=== PATIENT | male | born 1990 | race Caucasian/White ===

== ENCOUNTER 2024-06-05 09:21 | Emergency (ER) | payer BC, SELFPAY ==
[2024-06-05 09:34] VITALS: BP 160/96
--- NOTE | 2024-06-05 09:35 | ED.GENMED ---
ED Provider Triage
<Ciro Mills PA-C - Last Filed: 06/05/24 09:36>
-
Patient seen by provider in Triage?: Seen in Triage
Attestation: A medical screening examination has been initiated by a qualified medical provider. Based on the assessment performed at this time, it has been determined that an emergent medical condition may exist and the patient has been informed
that further medical evaluation and possible additional diagnostic testing may be needed.
HPI: 33-year-old male presents to the emergency department for evaluation of nausea vomiting and diarrhea, notes that his Mounjaro dose increased recently. Moderate abdominal discomfort as well. No fever
GENERAL: Alert , in no apparent distress
EYE: No visual abnormalities.
NECK: Trachea midline
ENT: No visible abnormalities.
LUNGS: No acute respiratory distress
NEUROLOGICAL: Alert and oriented
SKIN: Skin intact. No visible changes.
MUSCULOSKELETAL: Moving extremities normally
PSYCH: Normal and appropriate interaction.
This is a medical evaluation conducted in person to initiate diagnostic evaluation and provide initial therapeutics. Please see further documentation by the treating clinician.
History of Present Illness
<Ciro Mills PA-C - Last Filed: 06/05/24 09:36>
General
Chief Complaint: Abdominal Pain
Time Seen by Provider: 06/05/24 11:10
<Kal Nunez Jr., PA-C - Last Filed: 06/05/24 14:47>
General
Source: patient
Exam Limitations: none
Nursing documentation reviewed up to this point in time: agreed with
History of Present Illness
History of Present Illness:
33-year-old male with past medical history of hypertension and diabetes presenting to the emergency department today with concerns of nausea few episodes of vomiting and multiple episodes of diarrhea as well as crampy diffuse abdominal pain starting
last night. Has recently had increased dose of Mounjaro at home. Denies any chest pain shortness of breath no changes in urination.
Past History
<Ciro Mills PA-C - Last Filed: 06/05/24 09:36>
Past History
ED Past Medical History: None
ED Past Surgical History: None
Review of Systems
<Kal Nunez Jr., PA-C - Last Filed: 06/05/24 14:47>
Review of Systems
Allergies reviewed?: Yes
All Other Systems: ROS reviewed and negative except as documented in HPI and ROS
Phy Exam
<Kal Nunez Jr., PA-C - Last Filed: 06/05/24 14:47>
Physical Exam
Physical Exam:
GENERAL: Alert , in no apparent distress
EYE: pupils equal and reactive
NECK: Supple, no significant adenopathy.
ENT: o/p clr, mmm.
CARDIAC: Regular rate and rhythm .
LUNGS: Clear breath sounds bilaterally, no acute respiratory distress, no wheezes/rales/rhonchi
ABDOMEN: Vague discomfort throughout the abdomen maximal to the right side remainder of abdomen soft, without focal tenderness, no r/g, no cvat
NEUROLOGICAL: Alert and oriented, no focal neuro deficits
SKIN: Warm and dry, skin intact.
MUSCULOSKELETAL: No edema, well perfused.
PSYCH: Normal and appropriate interaction.
Course
<Ciro Mills PA-C - Last Filed: 06/05/24 09:36>
Orders/Labs/Results
Orders:
Orders
06/05/24 11:33
0.9% Sodium Chloride 1000 ml [Nss] 1,000 ml IV BOLUS
Ondansetron Injectable [Zofran] 4 mg IV NOW STA
06/05/24 12:56
Complete Blood Count/With Diff Urgent
Comprehensive Metabolic Panel Urgent
Lipase Urgent
Urinalysis Reflex To Culture Urgent
Date Specimen was Collected: 06/05/24
Time Specimen was Collected: 12:48
Urine Microscopic Reflex Cult Urgent
Abnormal Lab Results
06/05/24
12:56
WBC 18.9 H 10^3/uL
(4.8-10.8)
Abs Immat Gran (auto) 0.1 H 10^3/uL
(0-0.05)
Absolute Neuts (auto) 16.5 H 10^3/uL
(1.4-6.5)
Absolute Lymphs (auto) 0.9 L 10^3/uL
(1.2-3.4)
Absolute Monos (auto) 1.0 H 10^3/uL
(0.1-0.6)
Neutrophils % 87.5 H %
(42.2-75.2)
Lymphocytes % 4.9 L %
(20.5-51.1)
Glucose 167 H mg/dl
(70-99)
Urine Bacteria (Reflex) Few A
(Negative)
Urine Albumin (Reflex) 2+ A
(Neg - Trace)
06/05/24 12:56
06/05/24 12:56
Vital Signs
Initial and Last Documented VS:
Initial Vital Signs
Temp Pulse Resp BP Pulse Ox
98.0 F 125 18 160/96 99
06/05/24 09:34 06/05/24 09:34 06/05/24 09:34 06/05/24 09:34 06/05/24 09:34
Last Documented Vital Signs
Temp Pulse Resp BP Pulse Ox
98.0 F 105 20 130/88 98
06/05/24 09:34 06/05/24 13:05 06/05/24 13:05 06/05/24 13:05 06/05/24 13:05
<Kal Nunez Jr., PA-C - Last Filed: 06/05/24 14:47>
Orders/Labs/Results
Orders:
Orders
06/05/24 11:33
0.9% Sodium Chloride 1000 ml [Nss] 1,000 ml IV BOLUS
Ondansetron Injectable [Zofran] 4 mg IV NOW STA
06/05/24 12:56
Complete Blood Count/With Diff Urgent
Comprehensive Metabolic Panel Urgent
Lipase Urgent
Urinalysis Reflex To Culture Urgent
Date Specimen was Collected: 06/05/24
Time Specimen was Collected: 12:48
Urine Microscopic Reflex Cult Urgent
Abnormal Lab Results
06/05/24
12:56
WBC 18.9 H 10^3/uL
(4.8-10.8)
Abs Immat Gran (auto) 0.1 H 10^3/uL
(0-0.05)
Absolute Neuts (auto) 16.5 H 10^3/uL
(1.4-6.5)
Absolute Lymphs (auto) 0.9 L 10^3/uL
(1.2-3.4)
Absolute Monos (auto) 1.0 H 10^3/uL
(0.1-0.6)
Neutrophils % 87.5 H %
(42.2-75.2)
Lymphocytes % 4.9 L %
(20.5-51.1)
Glucose 167 H mg/dl
(70-99)
Urine Bacteria (Reflex) Few A
(Negative)
Urine Albumin (Reflex) 2+ A
(Neg - Trace)
06/05/24 12:56
06/05/24 12:56
Vital Signs
Initial and Last Documented VS:
Initial Vital Signs
Temp Pulse Resp BP Pulse Ox
98.0 F 125 18 160/96 99
06/05/24 09:34 06/05/24 09:34 06/05/24 09:34 06/05/24 09:34 06/05/24 09:34
Last Documented Vital Signs
Temp Pulse Resp BP Pulse Ox
98.0 F 105 20 130/88 98
06/05/24 09:34 06/05/24 13:05 06/05/24 13:05 06/05/24 13:05 06/05/24 13:05
<Kal Nunez Jr., PA-C - Last Filed: 06/05/24 14:47>
MDM/Problems Addressed
MDM/Problems Addressed:
33-year-old male presenting to the emergency department with concerns of nausea vomiting diarrhea starting last night. Patient recently increased dose of Mounjaro is unsure if this could be related. Denies fevers chest pain shortness of breath.
Here no reproducible abdominal pain. Was given Zofran as well as fluids with significant improvement of symptoms. Abdomen reassessed still no focal palpable discomfort. Symptoms could be secondary to Mounjaro versus a stomach bug either way
stable for outpatient management at this time return precautions given.
<Kal Nunez Jr., PA-C - Last Filed: 06/05/24 14:47>
*Critical Care Note
Total Time (30-74mins, 75-104mins- exclusive of procedures): Not Applicable
ED Attending Note
<Ciro Mills PA-C - Last Filed: 06/05/24 09:36>
-
Portions of this chart may have been created with voice recognition software.� Occasional wrong word or��sound alike� substitutions may have occurred due to the inherent limitations of voice recognition software.
Discharge Plan
Departure
Patient Disposition: Home (Routine Discharge)
Date of Disposition: 06/05/24
Time of Disposition: 14:46
Patient with high blood pressure during this ER visit?: No
Condition: Good
Covid-19: Not Applicable
Discharge Problem:
Vomiting and diarrhea
Instructions: Nausea and Vomiting, Adult (DC)
Prescriptions:
New
ondansetron 4 mg tablet,disintegrating
4 mg PO Q6H PRN (Reason: nausea and vomiting) Qty: 7 0RF
No Action
simvastatin 10 MG tablet
10 mg PO HS
metformin 1,000 MG tablet
1,000 mg PO BID
lisinopril 10 MG tablet
10 mg PO DAILY
Referrals:
Megan Ferguson CRNP [Family Provider] -
Activity Restrictions/Additional Instructions:
You came to the emergency department today with concerns of GI symptoms. Here you had a reassuring assessment. Please follow closely as an outpatient with your primary care team. Return for any worsening, new or concerning symptoms.
Interventions
Interventions:
*Risk Screen - Suicide Last Done: 06/05/24 09:34
*General Assessment Last Done: 06/05/24 11:22
*Neglect/Abuse Screening Last Done: 06/05/24 09:34
ED- Fall Risk Assessment Last Done: 06/05/24 11:22
[id number]-[id number] Assessment Last Done: 06/05/24 11:22
Discharge Date and Time
Print Language: THAI
[2024-06-05] MEDS: ZOFRAN 4 MG IV ×2 (12:54→14:57)
[2024-06-05] MEDS: NSS 1000 IV (12:54)
[2024-06-05 13:05] VITALS: BP 130/88
[2024-06-05 13:16] LABS: % Basophils 0.2 % (0-2); % Eosinophils 1.8 % (0-6); % Immature Granulocytes 0.5 % (0-0.5); % Lymphocytes 4.9 % (20.5-51.1); % Monocytes 5.1 % (1.7-9.3); % Neutrophils 87.5 % (42.2-75.2); Absolute Eosinophils 0.3 10^3/uL (0-0.7); Absolute Immature Granulocytes 0.1 10^3/uL (0-0.05); Absolute Lymphocytes 0.9 10^3/uL (1.2-3.4); Absolute Neutrophils 16.5 10^3/uL (1.4-6.5); Hematocrit 47.9 % (39.0-52.0); Hemoglobin 17.2 g/dL (13.0-18.0); Mean Corp Hgb Conc. 35.9 g/dL (33.0-37.0); Mean Corpuscular Hgb 29.5 pg (27.0-31.0); Nucleated Red Blood Cells % 0 % (-); Platelet Count 234 10^3/uL (130-400); Red Blood Cell Count 5.84 10^6/uL (4.70-6.10); Red Cell Dist. Width 12.9 % (11.5-14.5); White Blood Cell Count 18.9 10^3/uL (4.8-10.8)
[2024-06-05 13:22] LABS: ALT (SGPT) 21 U/L (0-50); AST (SGOT) 33 U/L (17-59); Albumin 4.6 g/dl (3.5-5.0); Alkaline Phosphatase 81 U/L (38-126); Blood Urea Nitrogen 11 mg/dl (9-20); Calcium 8.6 mg/dl (8.4-10.2); Carbon Dioxide 25 mmol/L (22-30); Chloride 101 mmol/L (98-107); Glucose 167 mg/dl (70-99); Lipase 102 U/L (23-300); Potassium 4.2 mmol/L (3.5-5.1); Sodium 136 mmol/L (135-145); Total Bilirubin 1.1 mg/dl (0.2-1.3); eGFR > 60.00
[2024-06-05 13:30] LABS: Urine Albumin 2+ (Neg - Trace); Urine Bilirubin Negative (Negative); Urine Character Slightly Cloudy (Clear); Urine Color Yellow; Urine Glucose Negative (Negative); Urine Ketone Negative (Negative); Urine Leukocyte Negative (Negative); Urine Nitrite Negative (Negative); Urine Occult Blood Negative (Negative); Urine Specific Gravity 1.025 (<1.030); Urine Urobilinogen Negative (Neg - 1+)
[2024-06-05 14:29] LABS: Urine Bacteria Few (Negative); Urine Red Blood Cell 0-2 /HPF (0-2); Urine Squamous Cell 0-2 /LPF (Few); Urine White Cell 0-2 /HPF (0-5)
== END 2024-06-05 15:17 | disposition home or self-care (01) ==
LOC: EMR 09:21
PROVIDERS: Physician Assistant; EMERGENCY PHYSICIAN Emergency Medicine; FAMILY PHYSICIAN Nurse Practitioner Adult Health
DX: R11.2 Nausea with vomiting, unspecified (principal); R19.7 Diarrhea, unspecified; E11.9 Type 2 diabetes mellitus without complications; I10 Essential (primary) hypertension
CPT/HCPCS: 99283; 96374; 96376; 96361; 80053; 81003; 81015; 83690; 85025